=== PATIENT | male | born 1990 | race African-American/Black ===

== ENCOUNTER 2021-02-14 11:32 | Emergency (ER) | payer OTHER ==
[~2021-02-14] VITALS: Ht 172.7 cm; Wt 59.0 kg
[2021-02-14] MEDS ORDERED: ONDANSETRON HCL 4MG/2ML INJ IV ONE (12:00)
[2021-02-14] MEDS ORDERED: MORPHINE SULFATE 4 MG/ML CPJ (NOT FOR IM USE) IV ONE (12:00)
[2021-02-14] MEDS ORDERED: ACETAMINOPHEN 325MG TABLET PO ONE (12:00)
[2021-02-14] MEDS ORDERED: SODIUM CHLORIDE 0.9% 1,000 ML IV ONE ×2 (12:00)
[2021-02-14 12:25] LABS: HEMATOCRIT. 43.4 % (42.0-52.0); HEMOGLOBIN. 14.7 g/dL (14.0-18.0); MEAN CORPUSCULAR HEMOGLOBIN 31.1 pg (28.0-32.0); MEAN CORPUSCULAR VOLUME 91.7 fL (80.0-94.0); MEAN PLATELET VOLUME 9.8 fl (7.4-10.4); PLATELET 109 x1000/uL (130-400); RED BLOOD CELL COUNT 4.73 mill/uL (4.7-6.1); RED CELL DISTRIBUTION WIDTH 12.7 % (11.6-14.6)
[2021-02-14 12:35] LABS: CHLORIDE 106 mEq/L (98-107)
[2021-02-14 12:39] LABS: ETHANOL BLOOD < 10 mg/dL
[2021-02-14 12:48] LABS: CLARITY URINE CLEAR (CLEAR); COLOR URINE YELLOW (YELLOW); KETONES URINE NEGATIVE (NEGATIVE); LEUKOCYTE ESTERASE URINE NEGATIVE (NEGATIVE); NITRITE URINE NEGATIVE (NEGATIVE); OCCULT BLOOD URINE NEGATIVE (NEGATIVE); PH URINE 8.5 (4.5-8.0); PROTEIN URINE NEGATIVE (NEGATIVE); SPECIFIC GRAVITY URINE 1.013 (1.005-1.030); UROBILINOGEN URINE 0.2 E.U./dL (0.2-1.0)
[2021-02-14 12:59] LABS: PLATELET ESTIMATE DECREASED
[2021-02-14 13:01] LABS: *AMPHETAMINES SCREEN URINE NEGATIVE (NEGATIVE); *BARBITURATES SCREEN URINE NEGATIVE (NEGATIVE); *BENZODIAZEPINES SCREEN URINE NEGATIVE (NEGATIVE); *COCAINE SCREEN URINE NEGATIVE (NEGATIVE)
[2021-02-14 13:02] LABS: CANNABINOID URINE SCREEN PRESUMTIVE POSITIVE (NEGATIVE); METHADONE URINE SCREEN NEGATIVE (NEGATIVE); OPIATES URINE SCREEN NEGATIVE (NEGATIVE); PHENCYCLIDINE URINE SCREEN NEGATIVE (NEGATIVE)
[2021-02-14] MEDS ORDERED: IBUP-2028 MT (15:01)
[2021-02-14 15:15] VITALS: BP 109/55
== END 2021-02-14 15:37 | disposition home or self-care (01) ==
LOC: ER 11:32
DX: R10.10 Upper abdominal pain, unspecified (principal); M54.59 Other low back pain; Z20.822 Contact with and (suspected) exposure to COVID-19; R00.0 Tachycardia, unspecified
CPT/HCPCS: 36415; 71045; 74176; 80053; 80305; 80320; 81003; 83605; 83690; 85025; 87040; 87086; 93005; 96361; 96374; 96375; 99285; C9803; J2270; J2405; J7030; U0003; U0005; G0480